=== PATIENT | female | born 1955 | race Caucasian/White ===

== ENCOUNTER → 2021-11-10 19:13 | Outpatient (CLI) | payer OTHER, SELFPAY ==
[2021-11-16 20:07] LABS: HPV Genotype 16, Aptima Negative (Negative)
[2021-11-16 20:19] LABS: HPV APTIMA, High Risk Positive (Negative); HPV Genotype 18,45 Aptima Negative (Negative)
== END ==
PROVIDERS: Referring Provider Nurse Practitioner Women's Health; Visit Provider Nurse Practitioner Women's Health
DX: Z12.4 Encounter for screening for malignant neoplasm of cervix (principal)
CPT/HCPCS: 87624; 88175; G0145

== ENCOUNTER 2021-12-16 06:52 | Day surgery (SDC) | payer MEDICARE, OTHER, SELFPAY ==
[2021-12-16 07:21] VITALS: BP 120/75; PULSE 99; RESP 16; TEMP 37.1; O2SAT 99; BMI 20.5
[2021-12-16] MEDS: Lactated Ringers 1,000 ML 15 ML IV (07:27)
--- NOTE | 2021-12-16 08:04 | H&P.OPEN ---
HPI - General HPI Narrative NICOLE KHAN, is a 65 F who presents for screening colonoscopy. Patient reports last colonoscopy was 12 years ago and was normal. The patient does not have any family history of colon cancer. She denies any abdominal pain or blood in her stool. [facility] Medical History (Updated 12/12/21 @ 15:07 by Siria Skinner) Asthma Cancer History of stress test HPV test positive Migraines Non-smoker Rash Home Medications ascorbic acid (vitamin C) 500 mg capsule 500 mg PO DAILY 06/24/18 [History Last Taken Unknown] cholecalciferol (vitamin D3) 50 mcg (2,000 unit) capsule 2,000 unit PO QDAY 06/24/18 [History Last Taken Unknown] mecobalamin (vitamin B12) 1,000 mcg disintegrating tablet,sublingual 1,000 mcg SUBLINGUAL QDAY 06/24/18 [History Last Taken Unknown] zolmitriptan 2.5 mg tablet 2.5 mg PO ONCE PRN 06/24/18 [History Last Taken Unknown] calcium carbonate 500 mg calcium (1,250 mg) chewable tablet 500 mg PO DAILY 11/10/21 [History Last Taken Unknown] Allergy/AdvReac Type Severity Reaction Status Date / Time No Known Allergies Allergy Verified 11/10/21 14:40 Family History Mother Lung cancer Father Lung cancer Social History Smoking Status: Never smoker alcohol intake: current details: occasionally substance use type: does not use caffeine: Yes what type of physical activity do you participate in: walking and weight training frequency: 5-6 times per week seatbelt use: always do you feel safe at home: Yes additional social history: - Chitra Patient and are both retired Past Medical/Surgical History Planned Operation Planned Operative Procedure/s: COLONOSCOPY Previous Hospitalizations/Surgeries HX Hospitalizations: No Any Problems With Anesthesia: No You/Your Family Experience Fever (Hyperthermia) With Anes: No Cholinesterase deficiency: No Cardiovascular Hx Hypertension: No Respiratory Hx Sleep Apnea: No Hx Respiratory Tract Infection/Cold (presently): No Do You Snore Loudly (louder than talking or can be heard): No Do You Often Feel Tired/ Fatigued/ Sleepy Dring Daytime?: No Has Anyone Observed You Stop Breathing During Sleep?: No Result (for STOP score): Negative Smoking Status: Never smoker Neurological Does patient have nerve stimulator: No Reproduction : No Miscellaneous Recent Exposure to Contagious Disease: No Allergies No Known Allergies Allergy (Verified 11/10/21 14:40) Discharge Is Pt Admitted From a Long-Term, or a Fdc: Yes Who Could Help: CHITRA After D/C, Where Do you Plan to Go: Return Home Vital Signs Vital Signs Vital Signs: 12/16/21 07:18 12/16/21 07:21 Temperature 98.8 F Temperature Source Temporal Pulse Rate 99 Respiratory Rate 16 Respiratory Pattern Normal Blood Pressure 120/75 Blood Pressure Mean 90 Blood Pressure Source Monitor Blood Pressure Position Semi-Fowlers Blood Pressure Location Right Arm Pulse Ox 99 Oxygen Delivery Method Room Air Weight Weight: 116 lb 3.2 oz Body Mass Index (BMI) 20.5 Physical Exam Const alert and oriented x3 Resp normal respiratory effort and normal air movement Cardio regular rate and regular rhythm GI soft to palpation, non-tender and non-distended Assessment & Plan Assessment/Plan (1) Encounter for screening for malignant neoplasm of colon: PLAN: I explained endoscopy in detail to the patient. I explained the risks including but not limited to stroke or heart attack with anesthesia, perforation of the GI tract, bleeding, infection. I explained that any of these could necessitate further emergency surgery. The patient understands and all questions were answered sufficiently. The patient wishes to proceed with procedure. Aguilar Otriz MD Pager: [facility] [address] [place] [address], [address] [place] [address] Office: Surgery Risks - Colonoscopy Risks Include but are not Limited To: Risks include but are not limited to: Bleeding, perforation requiring further surgery, inability to complete colonoscopy requiring barium enema.
[2021-12-16 08:36] VITALS: BP 106/60; BP 120/75; PULSE 79; RESP 20; TEMP 36; O2SAT 96
[2021-12-16 08:40] VITALS: BP 103/59; BP 120/75; PULSE 76; RESP 18; O2SAT 96
--- NOTE | 2021-12-16 08:40 | OP.CCLET_ITS ---
12/16/2021 Marlyn James [facility] [address] [address] Re : Colonoscopy procedure for [place] Dear Dr. James This procedure was performed on Thursday, December 16, 2021. My impressions and recommendations are as follows: Impressions : - The entire examined colon is normal on direct and retroflexion views. - No specimens collected. Recommendations : - Discharge patient to home. - Resume previous diet. - Continue present medications. - Repeat colonoscopy in 10 years for screening purposes. My findings are described in the full procedure note, which is enclosed. If I can be of further assistance, please feel free to contact me at Doctor phone number(s): , Work: . Sincerely, Aguilar Ortiz MD 12/16/2021 8:39:53 AM This report has been signed electronically.
--- NOTE | 2021-12-16 08:40 | OP.COLON_ITS ---
Patient Name: Bala Gomez Procedure Date: 12/16/2021 8:09 AM Date of : 1955 Age: 65 Procedure: Colonoscopy Indications: Screening for colorectal malignant neoplasm Providers: Aguilar Ortiz MD Referring MD: Aguilar Ortiz MD Medicines: Monitored Anesthesia Care Patient Profile: This is a 65 year old female. Refer to note in patient chart for documentation of history and physical. Last Colonoscopy: more than 10 years ago. Complications: No immediate complications. Procedure: Pre-Anesthesia Assessment: - Prior to the procedure, a History and Physical was performed, and patient medications and allergies were reviewed. The patient's tolerance of previous anesthesia was also reviewed. The risks and benefits of the procedure and the sedation options and risks were discussed with the patient. All questions were answered, and informed consent was obtained. Prior Anticoagulants: The patient has taken no previous anticoagulant or antiplatelet agents. After reviewing the risks and benefits, the patient was deemed in satisfactory condition to undergo the procedure. After I obtained informed consent, the scope was passed under direct vision. Throughout the procedure, the patient's blood pressure, pulse, and oxygen saturations were monitored continuously. The pediatric colonoscope was introduced through the anus and advanced to the cecum, identified by appendiceal orifice and ileocecal valve. The colonoscopy was performed without difficulty. The patient tolerated the procedure well. The quality of the bowel preparation was good. Scope In: 8:20:09 AM Scope Withdrawal Time 0 hours 3 minutes 8 seconds Scope Out: 8:33:14 AM Total Procedure Duration Time 0 hours 13 minutes 5 seconds Findings: The entire examined colon appeared normal on direct and retroflexion views. Impression: - The entire examined colon is normal on direct and retroflexion views. - No specimens collected. Recommendation: - Discharge patient to home. - Resume previous diet. - Continue present medications. - Repeat colonoscopy in 10 years for screening purposes. Procedure Code(s): --- Professional --- G0121, Colorectal cancer screening; colonoscopy on individual not meeting criteria for high risk Diagnosis Code(s): --- Professional --- Z12.11, Encounter for screening for malignant neoplasm of colon CPT copyright 2017 [employer]. All rights reserved. The codes documented in this report are preliminary and upon hcc coders review may be revised to meet current compliance requirements. Aguilar Ortiz MD 12/16/2021 8:39:53 AM This report has been signed electronically. Number of Addenda: 0 Note Initiated On: 12/16/2021 8:09 AM
[2021-12-16 08:45] VITALS: BP 120/75; BP 94/65; PULSE 77; RESP 18; O2SAT 97
[2021-12-16 08:51] VITALS: BP 106/70; BP 120/75; PULSE 69; RESP 18; TEMP 36.6; O2SAT 98
[2021-12-16 09:33] VITALS: BP 120/75
== END 2021-12-16 23:59 | disposition home or self-care (01) ==
LOC: EN 06:54 → AC 06:54
PROVIDERS: PCP Family Medicine; Referring Provider Surgery; Visit Provider Surgery
PROC: 0DJD8ZZ Inspection of Lower Intestinal Tract, Via Natural or Artificial Opening Endoscopic (ICD-10-PCS; CPT 45378; principal; 2021-12-16 07:55)
DX: Z12.11 Encounter for screening for malignant neoplasm of colon (principal); Z79.899 Other long term (current) drug therapy
CPT/HCPCS: 87426; C9803; J7120

== ENCOUNTER 2021-12-26 14:26 | Outpatient (CLI) | payer MEDICARE, OTHER, SELFPAY ==
--- NOTE | 2021-12-26 14:30 | US_ITS ---
STUDY: ULTRASOUND OF THE FEMALE PELVIS - COMPLETE REASON FOR EXAM: Female, 65 years old. Left sided pelvic pain. TECHNIQUE: Transabdominal and Transvaginal TECHNICAL QUALITY: Adequate. COMPARISON: None. FINDINGS: The uterus is anteverted and is in a midline position. The uterus measures 5.1 x 3.4 x 2.5 cm. Normal uterine cervix. The endometrium measures 3 mm in thickness, and is fluid distended up to 6 mm in transverse dimension. There is no demonstrated endometrial mass. Fibroid measuring 1.2 x 1.1 x 0.8 cm I.U.D. - The patient does not have an I.U.D. The ovaries were not visualized. There is no fluid in the cul-de-sac. The pre void volume of the bladder was 408 ml. US/Transvaginal Non- IMPRESSION: Endometrium distended by fluid in this presumed postmenopausal woman. Recommend TRANSACTIONAL PARALEGAL consult. 1.2 cm uterine fibroid. Ovaries not visualized. Electronically Signed: Eric Pretty MD at 4:12 EST Reading Location ID and State: [id number] / , Service support ,
--- NOTE | 2021-12-26 14:30 | US_ITS ---
STUDY: ULTRASOUND OF THE FEMALE PELVIS - COMPLETE REASON FOR EXAM: Female, 65 years old. Left sided pelvic pain. TECHNIQUE: Transabdominal and Transvaginal TECHNICAL QUALITY: Adequate. COMPARISON: None. FINDINGS: The uterus is anteverted and is in a midline position. The uterus measures 5.1 x 3.4 x 2.5 cm. Normal uterine cervix. The endometrium measures 3 mm in thickness, and is fluid distended up to 6 mm in transverse dimension. There is no demonstrated endometrial mass. Fibroid measuring 1.2 x 1.1 x 0.8 cm I.U.D. - The patient does not have an I.U.D. The ovaries were not visualized. There is no fluid in the cul-de-sac. The pre void volume of the bladder was 408 ml. US/Pelvic (Non ) IMPRESSION: Endometrium distended by fluid in this presumed postmenopausal woman. Recommend BALE STACKER consult. 1.2 cm uterine fibroid. Ovaries not visualized. Electronically Signed: Eric Pretty MD at 4:12 EST Reading Location ID and State: [id number] / , Service support ,
== END 2021-12-26 23:59 | disposition home or self-care (01) ==
LOC: US 14:28
PROVIDERS: PCP Family Medicine; Referring Provider Nurse Practitioner Women's Health; Visit Provider Nurse Practitioner Women's Health
DX: R10.2 Pelvic and perineal pain (principal)
CPT/HCPCS: 76830; 76856

== ENCOUNTER 2022-01-09 10:12 | Outpatient (CLI) | payer MEDICARE, OTHER, SELFPAY ==
--- NOTE | 2022-01-09 09:20 | EMB_PTH ---
PATIENT: NICOLE KHAN LOC: [facility] U#:[id number] AGE/SX: 66/F ROOM: RE01/09/[address]: SANDRA Garcia : 1955 BED: DIS: 01/09/2022 SPEC #: [id number] RECD: 01/09/22 10:07 STATUS: RACHEL EDGE #: [id number] REJI: 01/09/22 09:[address]: Yanely Mijares NP DEPT: SURGICAL PATHOLOGY RECD BY: Annia Cloud ENTERED: 01/09/22 11:55 SP TYPE: ENDOM BX/C HANNAH DR: No Primary Care Phys Tissues: Endometrium, NOS Procedures: Surgery Specimen Level IV HEADER OPERATION: Endometrial biopsy PRE-OP DIAGNOSIS: PMB TISSUE SUBMITTED: Endometrial biopsy MICROSCOPIC DIAGNOSIS Endometrial biopsy: Strips of benign endometrial epithelium and superficial fragments of benign endometrial tissue, consistent with atrophic endometrium. SJ:majo 01/10/2022 MICROSCOPIC DESCRIPTION Slides are reviewed. GROSS DESCRIPTION Received is one container labeled with the patient's name and not further designated. The specimen consists of multiple irregular fragments of joe mucoid tissue that in aggregate measure 2 x 0.5 x 0.1 cm. The specimen is totally submitted in one cassette. / SJ:majo 01/09/2022 TC:4 CPT: 37062
== END 2022-01-09 23:59 | disposition home or self-care (01) ==
LOC: LABSPEC 10:16
PROVIDERS: Referring Provider Nurse Practitioner Women's Health; Visit Provider Nurse Practitioner Women's Health
DX: N95.0 Postmenopausal bleeding (principal)
CPT/HCPCS: 88305

== ENCOUNTER → 2022-09-19 | Outpatient (CLI) | payer MEDICARE, OTHER, SELFPAY ==
--- NOTE | 2022-09-19 07:37 | CT_ITS ---
STUDY: CT ABDOMEN AND PELVIS WITH CONTRAST REASON FOR EXAM: Female, 66 years old. LUQ AND LLQ ABD PAIN RADIATION DOSAGE (If Supplied By Facility): CTDIvol = ( 4.43 ) mGy, DLP = ( 252.01 ) mGycm TECHNIQUE: Transaxial images were obtained from the dome of the diaphragm to the symphysis pubis with oral contrast. Readii-CAT and amp; 100mL Isovue 300 was administered. Sagittal and coronal images were reconstructed. Individualized dose optimization techniques were used for this CT. COMPARISON: None. FINDINGS: Minimal degree of increased markings at the lung bases suggestive of bibasilar atelectasis. Calcified granuloma in the posterior medial segment of the right lower lobe. The visualized portions of the heart are within normal limits. There is decreased attenuation of the liver consistent with steatosis. There is a 9 mm well-defined hypoechoic dense nodule in the lateral aspect of the mid right lobe of the liver suggestive of a small cyst. A tiny cyst is also seen in the central portion of the right lobe of the liver. Normal gallbladder and extrahepatic biliary system. Normal spleen. Normal pancreas. Normal bilateral adrenal glands. Normal right kidney. Normal left kidney. Normal visualized stomach. Normal small intestine. Normal colon. The appendix is visualized and appears normal. Normal abdominal aorta. Normal inferior vena cava. Normal retroperitoneum. Normal urinary bladder. Prominent venous structures surrounding the uterus. Normal abdominal wall. Normal osseous structures. CT/Abdomen/Pelvis WITH Contrast IMPRESSION: Fatty infiltration of the liver. Small hepatic cysts. Prominent venous structures seen in the region of the uterus. Electronically Signed: Andrew Hurst MD at 10:30 EST ,
[2022-09-19 08:05] LABS: CREATININE FINGERSTICK < 0.9 mg/dL (0.55-1.02); EGFR FINGERSTICK > 60.0000 mL/min (>60)
== END | disposition home or self-care (01) ==
PROVIDERS: PCP Family Medicine; Visit Provider Family Medicine
DX: R10.12 Left upper quadrant pain (principal); R10.32 Left lower quadrant pain
CPT/HCPCS: 74177; Q9967

== ENCOUNTER → 2022-11-15 | Outpatient (CLI) | payer MEDICARE, OTHER, SELFPAY ==
[2022-11-20 12:32] LABS: HPV APTIMA, High Risk Negative (Negative)
== END | disposition home or self-care (01) ==
LOC: LABSPEC 13:02
PROVIDERS: PCP Family Medicine; Referring Provider Nurse Practitioner Women's Health; Visit Provider Nurse Practitioner Women's Health
DX: Z12.4 Encounter for screening for malignant neoplasm of cervix (principal)
CPT/HCPCS: 87624; 88175; G0145

== ENCOUNTER → 2023-02-02 | Outpatient (CLI) | payer MEDICARE, OTHER, SELFPAY ==
[2023-02-02 12:10] LABS: Erythrocyte Sedimentation Rate 2 mm/hr (0-30)
[2023-02-02 12:13] LABS: Absolute Lymphocyte Count 2.28 X10^3/uL (0.83-4.51); Absolute Neutrophil Count 4.6 X10^3/uL (2.0-7.7); Basophil# 0.02 X10^3/uL; Basophil% 0.3 % (0-1); Eosinophil# 0.33 X10^3/uL; Eosinophils% 4.3 % (0-5); Hematocrit 44.8 % (37-47); Hemoglobin 14.5 g/dL (12.0-15.0); Lymphocyte # 2.28 X10^3/ul (0.83-4.51); Lymphocyte % 29.6 % (19-41); Mean Corp Hgb Conc 32.4 g/dL (32-36); Mean Corpuscular Hgb 31.3 pg (27.0-32.0); Mean Corpuscular Volume 96.8 fL (81-99); Mean Platelet Vol. 11.4 fl (6.2-12.0); Monocyte# 0.41 X10^3/uL; Monocyte% 5.3 % (0-10); NRBC Flagged by Analyzer 0 % (0-5); Neutrophil # 4.64 X10^3/uL (2.7-7.7); Neutrophil % 60.4 % (47-70); Platelet Count 262 K/mm3 (150-450); RBC Distribution Width CV 12.4 % (11.6-14.6); RBC Distribution Width SD 44.2 fl (35.1-43.9); Red Blood Count 4.63 M/mm3 (4.2-5.4); White Blood Count 7.7 K/mm3 (4.4-11.0)
[2023-02-02 12:56] LABS: ALB/GLOB Ratio 1.1 RATIO (0.9-2.4); AST(SGOT) 29 U/L (15-37); Alanine Aminotransfer ALT/SGPT 27 U/L (13-56); Albumin, Serum 4.1 g/dL (3.2-5.0); Alkaline Phosphatase 67 U/L (45-117); Anion Gap 6 (5-15); BUN 13 mg/dL (7-18); BUN/Creat Ratio 17.1 RATIO (10-20); CRP < 2.90 mg/L (0.0-3.0); Calcium,Total 9.7 mg/dL (8.5-10.1); Chloride 107 mmol/L (98-107); Creatinine, Serum 0.76 mg/dL (0.55-1.02); EST Glomerular Filtration Rate 81 mL/min (>60); Est Glom Filt Rate - Afr Amer 98 mL/min (>60); Globulin 3.7 g/dL (2.2-4.2); Glucose 89 mg/dL (74-106); Potassium 3.9 mmol/L (3.5-5.1); Protein, Total 7.8 g/dL (6.4-8.2); Sodium Level 142 mmol/L (136-145)
[2023-02-05 14:08] LABS: Anti-Centromere B Ab <0.2 AI (0.0-0.9); Anti-Chromatin <0.2 AI (0.0-0.9); Anti-Jo <0.2 AI (0.0-0.9); Anti-Scleroderma-70 AB <0.2 AI (0.0-0.9); RNP Ab <0.2 AI (0.0-0.9); SJOGREN'S Anti-SS-A test < 0.2 AI (0.0-0.9); SJOGREN'S Anti-SS-B test < 0.2 AI (0.0-0.9); Smith Ab <0.2 AI (0.0-0.9)
[2023-02-05 14:32] LABS: Anti-dsDNA Ab <1 IU/mL (0-9)
[2023-02-05 16:09] LABS: Cytoplasmic Ab (C-ANCA) <1:20 titer (Neg:<1:20); Endomysial Antibody IgA Negative (Negative); Immunoglobulin A 215 mg/dL (87-352); Immunoglobulin E 8 IU/mL (6-495); Immunoglobulin G 1179 mg/dL (586-1602); Immunoglobulin M 152 mg/dL (26-217)
[2023-02-05 17:44] LABS: Immunoglobulin A 218 mg/dL (87-352); Perinuclear Ab (P-ANCA) <1:20 titer (Neg:<1:20); t-Transglutaminase IgA <2 U/mL (0-3)
== END | disposition home or self-care (01) ==
LOC: LAB 10:34
PROVIDERS: PCP Family Medicine; Visit Provider Nurse Practitioner Adult Health
DX: R10.9 Unspecified abdominal pain (principal); R11.2 Nausea with vomiting, unspecified; R68.81 Early satiety
CPT/HCPCS: 36415; 80053; 82784; 82785; 83516; 85025; 85652; 86140; 86225; 86235; 86255; 86256

== ENCOUNTER → 2023-02-22 | Outpatient (CLI) | payer MEDICARE, OTHER, SELFPAY ==
--- NOTE | 2023-02-22 10:24 | NM_ITS ---
CLINICAL: 67-year-old female with history of early satiety and chronic nausea. SEMI-SOLID PHASE 99m Tc SULFUR COLLOID GASTRIC EMPTYING STUDY COMPARISON: None available FINDINGS: The patient was administered 1.0 mCi of 99m Tc sulfur colloid mixed with oatmeal and consumed per os. Image acquisitions in the anterior-posterior projections were obtained for 60 minutes. There is prompt visualization of the stomach. There is no gastroesophageal reflux identified. The T ? linear fit was calculated to be 50.27 minutes, (Normal: 12-56 minutes). NM/Gastric Emptying Study IMPRESSION: 1. NORMAL 99m Tc sulfur colloid semi-solid phase (oatmeal) gastric emptying imaging examination. A. There is upper limits of normal and preserved semi-solid phase gastric emptying compared to normal controls. (Laith et al, J Nucl Med Tech 38: 186, 2010). Electronically Signed: Vazquez Kebede, at 7:40 EDT ,
== END | disposition home or self-care (01) ==
PROVIDERS: PCP Family Medicine; Referring Provider Nurse Practitioner Adult Health; Visit Provider Nurse Practitioner Adult Health
DX: R68.81 Early satiety (principal)
CPT/HCPCS: 78264; A9541

== ENCOUNTER 2023-10-16 12:13 | Outpatient (CLI) | payer MEDICARE, OTHER, SELFPAY ==
[2023-10-16 12:44] LABS: Absolute Lymphocyte Count 1.83 X10^3/uL (0.83-4.51); Basophil# 0.06 X10^3/uL; Basophil% 1.1 % (0-1); Eosinophil# 0.06 X10^3/uL; Eosinophils% 1.1 % (0-5); Hematocrit 46.4 % (37-47); Hemoglobin 15.1 g/dL (12.0-15.0); Lymphocyte # 1.83 X10^3/ul (0.83-4.51); Lymphocyte % 34.3 % (19-41); Mean Corp Hgb Conc 32.5 g/dL (32-36); Mean Corpuscular Hgb 31.7 pg (27.0-32.0); Mean Corpuscular Volume 97.5 fL (81-99); Mean Platelet Vol. 12.2 fl (6.2-12.0); Monocyte# 0.33 X10^3/uL; Monocyte% 6.2 % (0-10); NRBC Flagged by Analyzer 0 % (0-5); Neutrophil # 3.03 X10^3/uL (2.7-7.7); Neutrophil % 56.9 % (47-70); Platelet Count 226 K/mm3 (150-450); RBC Distribution Width CV 11.9 % (11.6-14.6); RBC Distribution Width SD 43.4 fl (35.1-43.9); Red Blood Count 4.76 M/mm3 (4.2-5.4); White Blood Count 5.3 K/mm3 (4.4-11.0)
[2023-10-16 13:13] LABS: Hemoglobin A1c 5.1 % (3.8-5.6)
[2023-10-16 13:32] LABS: Progesterone Level < 0.21 ng/mL (See Comment)
[2023-10-16 14:53] LABS: ALB/GLOB Ratio 1.2 RATIO (0.9-2.4); AST(SGOT) 23 U/L (15-37); Alanine Aminotransfer ALT/SGPT 26 U/L (13-56); Albumin, Serum 4.2 g/dL (3.2-5.0); Alkaline Phosphatase 79 U/L (45-117); Anion Gap 6 (5-15); BUN 15 mg/dL (7-18); BUN/Creat Ratio 16.7 RATIO (10-20); Calcium,Total 9.7 mg/dL (8.5-10.1); Chloride 106 mmol/L (98-107); Cholesterol 262 mg/dL (200); EST Glomerular Filtration Rate 66 mL/min (>60); Est Glom Filt Rate - Afr Amer 80 mL/min (>60); Estradiol 11.5 pg/mL; Ferritin 71 ng/mL (8-252); Globulin 3.4 g/dL (2.2-4.2); Glucose 74 mg/dL (74-106); High Density Lipoprotein 82 mg/dL; Iron 107 ug/dL (50-170); Potassium 3.7 mmol/L (3.5-5.1); Protein, Total 7.6 g/dL (6.4-8.2); Sodium Level 141 mmol/L (136-145); Triglycerides 73 mg/dL; Very Low Density Lipoprotein 15 mg/dL (5-40)
[2023-10-17 10:09] LABS: DHEA Sulfate 82.9 ug/dL (20.4-186.6)
== END 2023-10-16 23:59 | disposition home or self-care (01) ==
LOC: LABSPEC 12:15
PROVIDERS: PCP Family Medicine; Referring Provider Nurse Practitioner Family; Visit Provider Nurse Practitioner Family
DX: M81.8 Other osteoporosis without current pathological fracture (principal); G43.109 Migraine with aura, not intractable, without status migrainosus; I95.0 Idiopathic hypotension; E28.9 Ovarian dysfunction, unspecified
CPT/HCPCS: 80053; 80061; 82627; 82670; 82728; 83036; 83540; 84144; 84403; 85025; 82626